=== PATIENT | male | born 1970 | race Caucasian/White ===

== ENCOUNTER 2021-05-09 14:08 | Inpatient (IN) | payer SELFPAY ==
[~2021-05-09 14:08] MED LIST: Iopamidol-370 76% 500 ML 1 ML ONE
[2021-05-09 16:58] VITALS: BMI 27.1
[2021-05-09] MEDS ORDERED: Acetaminophen 325 MG TAB PO PRN (17:58)
[2021-05-09] MEDS ORDERED: Ondansetron PF 4 MG/2 ML Vial IVP PRN (17:58)
[2021-05-09] MEDS ORDERED: HYDROcodone/Acetaminophen 7.5/325 mg Tablet PO PRN (17:58)
[2021-05-09] MEDS ORDERED: Senokot S 8.6-50 MG TAB PO PRN (17:58)
[2021-05-09] MEDS ORDERED: HYDROcodone/Acetaminophen 5/325 mg Tablet PO PRN (17:58)
[2021-05-09] MEDS ORDERED: Melatonin 3 MG TAB PO PRN (18:09)
[2021-05-09] MEDS ORDERED: Pharmacy to Dose REMDESIVIR IVPB PRN (18:12)
[2021-05-09] MEDS ORDERED: Albuterol Sulfate 1.25 MG/3 ML NEB INH PRN (18:16)
[2021-05-09] MEDS ORDERED: Lorazepam 2 MG/ML VIAL SLOW IVP PRN (18:40)
[2021-05-09] MEDS ORDERED: Enoxaparin Sodium 40 MG/0.4 ML SYRINGE SC SCH (18:45)
[2021-05-09] MEDS ORDERED: Albuterol 200 PUFF (6.7GM INHALER) INH PRN (18:48)
[2021-05-09] MEDS ORDERED: Dexamethasone 4 mg/ml Vial SLOW IVP SCH (21:00)
[2021-05-09] MEDS ORDERED: REMDESIVIR 200 MG in Sodium Chloride 0.9% 250 ML 210 ML IV SCH (21:00)
[2021-05-09] MEDS ORDERED: Famotidine/PF 20 mg/2ml Vial SLOW IVP SCH (21:00)
[2021-05-10] MEDS: Cefepime 1 GM in Sodium Chloride 0.9% 100 ML IVPB SCH ×2 (01:40→12:46)
[2021-05-10] MEDS ORDERED: Vancomycin 1 GM in Premix Bag 1 BAG IVPB SCH (02:00)
[2021-05-10] MEDS: VANCOMYCIN 2 GRAM/400 ML BAG 2 GM in Premix Bag 1 BAG IVPB SCH ×2 (02:40→13:22)
[2021-05-10 06:45] LABS: #Lymphocytes 0.7 thou/uL (1.20-3.40); #Neutrophils 15.5 thou/uL (1.40-6.50); %Basophils 0.1 % (0.0-1.0); %Lymphocytes 4.2 % (21.0-51.0); %Monocytes 5.7 % (0.0-10.0); Mean Corpuscular HGB CONC 31.8 g/dL (32.0-36.0); Mean Corpuscular Hemoglobin 30.9 pg (27.0-31.0); Mean Corpuscular Volume 97.3 fL (78.0-98.0); Mean Platelet Volume 7.1 fL (7.4-10.4); Platelet Count 356 thou/uL (130-400); RBC Distribution Width 13.4 % (11.5-14.5); Red Blood Cell (RBC) Count 4.21 mill/uL (4.70-6.10); White Blood Cell (WBC) Count 17.2 thou/uL (4.8-10.8)
[2021-05-10 07:14] LABS: ALT (SGPT) 27 U/L (8-55); AST (SGOT) 28 U/L (5-34); Albumin 3.8 g/dL (3.5-5.0); Alkaline Phosphatase 67 U/L (40-110); Anion Gap 15 mmol/L (10-20); BUN (Urea Nitrogen) 16 mg/dL (8.4-25.7); Bilirubin, Total 0.3 mg/dL (0.2-1.2); Calc. Creatinine Clearance 157 mL/min (70-130); Calcium 9.5 mg/dL (7.8-10.44); Carbon Dioxide 25 mmol/L (22-29); Chloride 100 mmol/L (98-107); Globulin 3.1 g/dL (2.4-3.5); Glucose 154 mg/dL (70-105); Potassium 4.8 mmol/L (3.5-5.1); Protein, Total 6.9 g/dL (6.0-8.3); Sodium 135 mmol/L (136-145)
[2021-05-10] MEDS ORDERED: Fluticasone Propionate Nasal Spray 16 gm Bottle NASAL PRN (07:48)
[2021-05-10] MEDS ORDERED: GUAIFENESIN SF SOLN 200 MG/10 ML UDCUP PO PRN (07:49)
[2021-05-10] MEDS ORDERED: Loperamide HCl 2 MG CAP PO PRN (07:49)
[2021-05-10] MEDS ORDERED: hydrALAZINE 20 MG/ML VIAL SLOW IVP PRN (07:49)
[2021-05-10] MEDS ORDERED: Benzonatate 100 MG CAP PO PRN (07:49)
[2021-05-10] MEDS ORDERED: Loratadine 10 MG TAB PO PRN (07:49)
[2021-05-10] MEDS ORDERED: Sodium Chloride 0.65% Nasal 44 ML BOT EA NARE PRN (07:49)
[2021-05-10] MEDS ORDERED: Bisacodyl 5 MG TAB PO PRN (07:49)
[2021-05-10] MEDS ORDERED: Artificial Tear Sol 15 ML BOT EA EYE PRN (07:49)
[2021-05-10] MEDS ORDERED: Hydrocerin (Eucerin) Cream 120 gm Jar TOP PRN (07:49)
[2021-05-10] MEDS ORDERED: Ondansetron ODT 4 MG TAB PO PRN (07:49)
[2021-05-10] MEDS ORDERED: Zolpidem Tartrate 5 MG TAB PO PRN (07:49)
[2021-05-10] MEDS ORDERED: Calcium Carbonate 500 MG ChewTAB PO PRN (07:49)
[2021-05-10] MEDS ORDERED: Albuterol 200 PUFF (6.7GM INHALER) INH PRN (08:39)
[2021-05-10] MEDS ORDERED: Ascorbic Acid 500 mg Chewable Tablet PO SCH (09:00)
[2021-05-10] MEDS ORDERED: Cholecalciferol (Vitamin D3) 400 UNITS TAB PO SCH (09:00)
[2021-05-10] MEDS: Allopurinol 300 MG TAB PO SCH (09:25)
[2021-05-10] MEDS: Enoxaparin Sodium 40 MG/0.4 ML SYRINGE SC SCH (09:25)
[2021-05-10] MEDS: Guaifenesin DM 100-10/5 ML UDCUP PO PRN ×2 (09:25→20:19)
[2021-05-10] MEDS: Folic Acid 1 MG TAB PO SCH (09:25)
[2021-05-10] MEDS: Ascorbic Acid 500 mg Chewable Tablet PO SCH (09:25)
[2021-05-10] MEDS: Multivitamin W/ Minerals 1 TAB PO SCH (09:25)
[2021-05-10] MEDS: Lisinopril 20 MG TAB PO SCH (09:26)
[2021-05-10] MEDS: Thiamine 100 MG TAB PO SCH (09:26)
[2021-05-10] MEDS: Dexamethasone 4 mg/ml Vial SLOW IVP SCH (09:26)
[2021-05-10] MEDS: Cholecalciferol 1,000 UNITS (25 MCG) TAB PO SCH (09:26)
[2021-05-10] MEDS: Zinc Sulfate 220 MG CAP PO SCH (09:26)
[2021-05-10] MEDS: Albuterol 200 PUFF (6.7GM INHALER) INH SCH ×2 (12:46→20:30)
[2021-05-10] MEDS: REMDESIVIR 100 MG in Sodium Chloride 0.9% 250 ML 230 ML IV SCH (21:26)
[2021-05-11] MEDS: Cefepime 1 GM in Sodium Chloride 0.9% 100 ML IVPB SCH ×2 (00:33→12:08)
[2021-05-11] MEDS: Albuterol 200 PUFF (6.7GM INHALER) INH SCH ×5 (00:58→21:44)
[2021-05-11] MEDS: VANCOMYCIN 2 GRAM/400 ML BAG 2 GM in Premix Bag 1 BAG IVPB SCH (01:35)
[2021-05-11 07:18] LABS: ALT (SGPT) 52 U/L (8-55); AST (SGOT) 44 U/L (5-34); Albumin 3.7 g/dL (3.5-5.0); Alkaline Phosphatase 74 U/L (40-110); Anion Gap 14 mmol/L (10-20); BUN (Urea Nitrogen) 20 mg/dL (8.4-25.7); Bilirubin, Total 0.2 mg/dL (0.2-1.2); Calc. Creatinine Clearance 173 mL/min (70-130); Calcium 9.4 mg/dL (7.8-10.44); Carbon Dioxide 24 mmol/L (22-29); Chloride 102 mmol/L (98-107); Globulin 3.2 g/dL (2.4-3.5); Glucose 144 mg/dL (70-105); Potassium 5.1 mmol/L (3.5-5.1); Protein, Total 6.9 g/dL (6.0-8.3); Sodium 135 mmol/L (136-145)
[2021-05-11 07:20] LABS: Hemoglobin 12.2 g/dL (14.0-18.0); Mean Corpuscular HGB CONC 31.7 g/dL (32.0-36.0); Mean Corpuscular Volume 97.8 fL (78.0-98.0); Mean Platelet Volume 7.8 fL (7.4-10.4); Platelet Count 378 thou/uL (130-400); RBC Distribution Width 13.6 % (11.5-14.5); Red Blood Cell (RBC) Count 3.95 mill/uL (4.70-6.10); White Blood Cell (WBC) Count 25.8 thou/uL (4.8-10.8)
[2021-05-11] MEDS: Guaifenesin DM 100-10/5 ML UDCUP PO PRN ×2 (08:17→16:03)
[2021-05-11] MEDS: Allopurinol 300 MG TAB PO SCH (08:17)
[2021-05-11] MEDS: Cholecalciferol 1,000 UNITS (25 MCG) TAB PO SCH (08:17)
[2021-05-11] MEDS: Zinc Sulfate 220 MG CAP PO SCH (08:17)
[2021-05-11] MEDS: Multivitamin W/ Minerals 1 TAB PO SCH (08:18)
[2021-05-11] MEDS: Thiamine 100 MG TAB PO SCH (08:18)
[2021-05-11] MEDS: Lisinopril 20 MG TAB PO SCH (08:18)
[2021-05-11] MEDS: Ascorbic Acid 500 mg Chewable Tablet PO SCH (08:18)
[2021-05-11] MEDS: Folic Acid 1 MG TAB PO SCH (08:18)
[2021-05-11] MEDS: Enoxaparin Sodium 40 MG/0.4 ML SYRINGE SC SCH (08:18)
[2021-05-11] MEDS: Dexamethasone 4 mg/ml Vial SLOW IVP SCH (08:19)
[2021-05-11 08:39] LABS: Band 39 % (5-11); Lymphocytes 2 % (21-51); MDiff Complete? YES; Monocytes 6 % (0-10); Neutrophil 52 % (42-75); Platelet Morphology Comment Appears Adequate; Polychromasia SLIGHT = 2-3 cells (100X) (0-2/hpf); Reactive Lymphocytes 1 % (0-10)
[2021-05-11 13:50] LABS: Vancomycin, Trough 12.3 ug/mL
[2021-05-11] MEDS ORDERED: HYDROcodone/Acetaminophen 5/325 mg Tablet PO PRN (17:12)
[2021-05-11] MEDS: REMDESIVIR 100 MG in Sodium Chloride 0.9% 250 ML 230 ML IV SCH (21:44)
[2021-05-12] MEDS: Albuterol 200 PUFF (6.7GM INHALER) INH SCH ×4 (01:05→19:45)
[2021-05-12] MEDS: Cefepime 1 GM in Sodium Chloride 0.9% 100 ML IVPB SCH ×2 (01:05→13:29)
[2021-05-12] MEDS: Dexamethasone 4 mg/ml Vial SLOW IVP SCH (08:11)
[2021-05-12] MEDS: Zinc Sulfate 220 MG CAP PO SCH (08:11)
[2021-05-12] MEDS: Cholecalciferol 1,000 UNITS (25 MCG) TAB PO SCH (08:12)
[2021-05-12] MEDS: Multivitamin W/ Minerals 1 TAB PO SCH (08:12)
[2021-05-12] MEDS: Allopurinol 300 MG TAB PO SCH (08:12)
[2021-05-12] MEDS: Ascorbic Acid 500 mg Chewable Tablet PO SCH (08:12)
[2021-05-12] MEDS: Thiamine 100 MG TAB PO SCH (08:12)
[2021-05-12] MEDS: Lisinopril 20 MG TAB PO SCH (08:12)
[2021-05-12] MEDS: Folic Acid 1 MG TAB PO SCH (08:13)
[2021-05-12] MEDS: Enoxaparin Sodium 40 MG/0.4 ML SYRINGE SC SCH (08:13)
[2021-05-12 10:31] LABS: ALT (SGPT) 49 U/L (8-55); AST (SGOT) 29 U/L (5-34); Albumin 3.5 g/dL (3.5-5.0); Alkaline Phosphatase 71 U/L (40-110); Anion Gap 13 mmol/L (10-20); BUN (Urea Nitrogen) 17 mg/dL (8.4-25.7); Bilirubin, Total 0.3 mg/dL (0.2-1.2); Calc. Creatinine Clearance 169 mL/min (70-130); Calcium 9.3 mg/dL (7.8-10.44); Carbon Dioxide 28 mmol/L (22-29); Chloride 102 mmol/L (98-107); Globulin 3.2 g/dL (2.4-3.5); Glucose 114 mg/dL (70-105); Potassium 4.1 mmol/L (3.5-5.1); Protein, Total 6.7 g/dL (6.0-8.3); Sodium 139 mmol/L (136-145)
[2021-05-12 12:30] LABS: Hemoglobin 12.4 g/dL (14.0-18.0); MDiff Complete? YES; Mean Corpuscular Hemoglobin 31.6 pg (27.0-31.0); Mean Corpuscular Volume 98.6 fL (78.0-98.0); Mean Platelet Volume 7.5 fL (7.4-10.4); Platelet Count 388 thou/uL (130-400); Red Blood Cell (RBC) Count 3.94 mill/uL (4.70-6.10); White Blood Cell (WBC) Count 14.8 thou/uL (4.8-10.8)
[2021-05-12 12:31] LABS: Band 15 % (5-11); Eosinophils 1 % (0-10); Lymphocytes 10 % (21-51); Monocytes 2 % (0-10); Myelocyte 1 % (0-0); Neutrophil 71 % (42-75); Platelet Morphology Comment Appears Adequate; RBC Morphology Normal
[2021-05-12] MEDS ORDERED: Cyclobenzaprine 10 MG TAB PO PRN (12:52)
[2021-05-12] MEDS: REMDESIVIR 100 MG in Sodium Chloride 0.9% 250 ML 230 ML IV SCH (20:07)
[2021-05-13] MEDS: Albuterol 200 PUFF (6.7GM INHALER) INH SCH ×4 (01:10→19:30)
[2021-05-13] MEDS: Cefepime 1 GM in Sodium Chloride 0.9% 100 ML IVPB SCH ×2 (01:10→12:55)
[2021-05-13] MEDS: Zinc Sulfate 220 MG CAP PO SCH (08:03)
[2021-05-13] MEDS: Enoxaparin Sodium 40 MG/0.4 ML SYRINGE SC SCH (08:03)
[2021-05-13] MEDS: Allopurinol 300 MG TAB PO SCH (08:03)
[2021-05-13] MEDS: Dexamethasone 4 mg/ml Vial SLOW IVP SCH (08:03)
[2021-05-13] MEDS: Folic Acid 1 MG TAB PO SCH (08:04)
[2021-05-13] MEDS: Ascorbic Acid 500 mg Chewable Tablet PO SCH (08:04)
[2021-05-13] MEDS: Multivitamin W/ Minerals 1 TAB PO SCH (08:04)
[2021-05-13] MEDS: Lisinopril 20 MG TAB PO SCH (08:04)
[2021-05-13] MEDS: Thiamine 100 MG TAB PO SCH (08:04)
[2021-05-13] MEDS: Cholecalciferol 1,000 UNITS (25 MCG) TAB PO SCH (08:04)
[2021-05-13] MEDS: REMDESIVIR 100 MG in Sodium Chloride 0.9% 250 ML 230 ML IV SCH (21:00)
[2021-05-14] MEDS: Albuterol 200 PUFF (6.7GM INHALER) INH SCH ×4 (01:20→20:07)
[2021-05-14] MEDS: Cefepime 1 GM in Sodium Chloride 0.9% 100 ML IVPB SCH ×2 (01:21→12:16)
[2021-05-14 07:37] LABS: ALT (SGPT) 43 U/L (8-55); AST (SGOT) 25 U/L (5-34); Albumin 3.4 g/dL (3.5-5.0); Alkaline Phosphatase 70 U/L (40-110); Anion Gap 13 mmol/L (10-20); BUN (Urea Nitrogen) 17 mg/dL (8.4-25.7); Bilirubin, Total 0.3 mg/dL (0.2-1.2); Calc. Creatinine Clearance 169 mL/min (70-130); Calcium 9.4 mg/dL (7.8-10.44); Carbon Dioxide 28 mmol/L (22-29); Chloride 100 mmol/L (98-107); Globulin 3.3 g/dL (2.4-3.5); Glucose 95 mg/dL (70-105); Potassium 4.7 mmol/L (3.5-5.1); Protein, Total 6.7 g/dL (6.0-8.3); Sodium 136 mmol/L (136-145)
[2021-05-14] MEDS: Lisinopril 20 MG TAB PO SCH (08:22)
[2021-05-14] MEDS: Ascorbic Acid 500 mg Chewable Tablet PO SCH (08:22)
[2021-05-14] MEDS: Cholecalciferol 1,000 UNITS (25 MCG) TAB PO SCH (08:23)
[2021-05-14] MEDS: Dexamethasone 4 mg/ml Vial SLOW IVP SCH (08:24)
[2021-05-14] MEDS: Allopurinol 300 MG TAB PO SCH (08:24)
[2021-05-14] MEDS: Zinc Sulfate 220 MG CAP PO SCH (08:24)
[2021-05-14] MEDS: Enoxaparin Sodium 40 MG/0.4 ML SYRINGE SC SCH (08:24)
[2021-05-14] MEDS: Folic Acid 1 MG TAB PO SCH (08:25)
[2021-05-14] MEDS: Multivitamin W/ Minerals 1 TAB PO SCH (08:25)
[2021-05-14] MEDS: Thiamine 100 MG TAB PO SCH (08:26)
[2021-05-14 09:44] LABS: Band 22 % (5-11); Hemoglobin 13.1 g/dL (14.0-18.0); Lymphocytes 22 % (21-51); MDiff Complete? YES; Mean Corpuscular HGB CONC 31.6 g/dL (32.0-36.0); Mean Corpuscular Volume 98.1 fL (78.0-98.0); Mean Platelet Volume 7.3 fL (7.4-10.4); Metamyelocyte 5 % (0-0); Monocytes 6 % (0-10); Myelocyte 1 % (0-0); Neutrophil 41 % (42-75); Nucleated RBC 1 % (0); Platelet Count 455 thou/uL (130-400); RBC Distribution Width 14.1 % (11.5-14.5); Reactive Lymphocytes 3 % (0-10); Red Blood Cell (RBC) Count 4.22 mill/uL (4.70-6.10); White Blood Cell (WBC) Count 12.4 thou/uL (4.8-10.8)
[2021-05-14] MEDS ORDERED: Dexamethasone 4 mg/ml Vial SLOW IVP SCH (10:15)
[2021-05-15] MEDS: Cefepime 1 GM in Sodium Chloride 0.9% 100 ML IVPB SCH ×2 (00:53→12:56)
[2021-05-15] MEDS: Albuterol 200 PUFF (6.7GM INHALER) INH SCH ×3 (01:05→13:05)
[2021-05-15] MEDS: Thiamine 100 MG TAB PO SCH (08:01)
[2021-05-15] MEDS: Ascorbic Acid 500 mg Chewable Tablet PO SCH (08:01)
[2021-05-15] MEDS: Allopurinol 300 MG TAB PO SCH (08:01)
[2021-05-15] MEDS: Folic Acid 1 MG TAB PO SCH (08:01)
[2021-05-15] MEDS: Multivitamin W/ Minerals 1 TAB PO SCH (08:01)
[2021-05-15] MEDS: Enoxaparin Sodium 40 MG/0.4 ML SYRINGE SC SCH (08:02)
[2021-05-15] MEDS: Zinc Sulfate 220 MG CAP PO SCH (08:02)
[2021-05-15] MEDS: Lisinopril 20 MG TAB PO SCH (08:02)
[2021-05-15] MEDS: Cholecalciferol 1,000 UNITS (25 MCG) TAB PO SCH (08:02)
[2021-05-15] MEDS ORDERED: Dexamethasone 4 mg/ml Vial SLOW IVP SCH (09:00)
[2021-05-15 09:14] VITALS: BP 114/74; TEMP 98.1
== END 2021-05-15 15:40 | disposition home or self-care (01) | DRG 177 ==
LOC: T4-A 14:08
PROVIDERS: ADMIT Internal Medicine; ATTEND Internal Medicine
PROC: XW033E5 Introduction of Remdesivir Anti-infective into Peripheral Vein, Percutaneous Approach, New Technology Group 5 (ICD-10-PCS; principal; 2021-05-09)
PROC: 8E0ZXY6 Isolation (ICD-10-PCS; 2021-05-09)
DX: U07.1 COVID-19 (principal); J12.82 Pneumonia due to coronavirus disease 2019; J96.00 Acute respiratory failure, unspecified whether with hypoxia or hypercapnia; I10 Essential (primary) hypertension; F10.21 Alcohol dependence, in remission; T38.0X5A Adverse effect of glucocorticoids and synthetic analogues, initial encounter; D72.829 Elevated white blood cell count, unspecified; D89.832 Cytokine release syndrome, grade 2; M10.9 Gout, unspecified; Z79.899 Other long term (current) drug therapy; Z98.890 Other specified postprocedural states; Z78.9 Other specified health status
CPT/HCPCS: 36415; 71046; 71275; 80053; 80202; 82728; 84145; 85025; 85379; 86140; J0692; J1100; J1650; J3370; J3490; J7050; Q9967; S0028